=== PATIENT | male | born 1985 | race Caucasian/White ===

== ENCOUNTER 2019-09-27 11:16 | Emergency (ER) | payer OTHER ==
[2019-09-27 13:33] VITALS: BP 144/75
== END 2019-09-27 12:38 | disposition home or self-care (01) ==
LOC: ED 11:16
DX: S01.81XA Laceration without foreign body of other part of head, initial encounter (principal); Z23 Encounter for immunization; W20.8XXA Other cause of strike by thrown, projected or falling object, initial encounter; Y92.59 Other trade areas as the place of occurrence of the external cause
CPT/HCPCS: 90715

== ENCOUNTER → 2019-10-04 | Outpatient (CLI) | payer OTHER ==
[2019-09-27 13:33] VITALS: BP 144/75
== END ==
LOC: AMSURD 11:35
DX: Z48.02 Encounter for removal of sutures (principal)